=== PATIENT | female | born 1950 | race Caucasian/White ===

== ENCOUNTER → 2017-05-22 | Outpatient (CLI) | payer MEDICARE, OTHER ==
[~2017-05-22] MED LIST: ACET-2031 PO; BACDS PO; CETI-176 PO; CETI10CA8 PO; CIPR-326 PO; DIP25 PO; FAM20 PO; HCTZ; IBU200 PO; IBU600 PO; LOR5/325 PO; LORA-787 PO; MU-V1TAB9 PO; PHENA200 PO; PRA20 PO; PRAV20TA65 PO; RAMI10CA52 PO; RAMI10CA62 PO
--- NOTE | 2017-05-22 10:53 | RADIOLOGY IMAGING REPORT ---
FACILITY: PATIENT NAME: Kisha Stern : 1950 MR: [id number] V: [id number] EXAM DATE: ORDERING PHYSICIAN: KORIN DORAN TECHNOLOGIST: Location: [facility] [place] Patient: Kisha Stern : 1950 Visit/Account:[id number] Date of Sevice: 05/22/2017 DEXA Scan Clinical history: Asymptomatic postmenopausal estrogen deficiency. Comparison: None available. LUMBAR SPINE: The bone mineral density (BMD) measured from L1-L4 correlates with a Z-score 1.5 and a T-score of 0.3 which is Normal as defined by the World Health Organization. The corresponding risk of fracture in the lumbar spine is Not increased compared with a young adult reference population. HIP: Bone mineral density (BMD) measured in the Left total hip region correlates with a Z-score 0.2 and a T-score of by 0.8 which is Normal as defined by the World Health Organization. The corresponding ris k of fracture in the hip is 1-2 times increased compared with a young adult reference population. T score left femoral neck -1.6 Bone mineral density (BMD) measured in the Femoral Neck region measures 0.821 g/cm2. Impression: 1. Lumbar spine: Normal. 2. Left Hip: Normal. 3. Femoral Neck: Bone Mineral Density is 0.821 g/cm2 The next DEXA scan of this patient should include the following sites: L1-L4 and the left hip. FRAX? WHO Fracture Risk Assessment Tool link: <http://www.shef.ac.uk/FRAX/tool.jsp?locationValue=9> PLEASE NOTE: 1) The World Health Organization defines low BMD as follows: T-score Normal > -1 Osteopenia < -1 and > -2.5 Osteoporosis < -2.5 without fractures Established osteoporosis < -2.5 with fractures 2) In general, you may wish to consider: Diagnosis Treatment Follow-up DEXA Normal BMD Prevention 2-3 years Osteopenia Prevention/therapy 1-2 years Osteoporosis Therapy Yearly 3) Fracture risk estimated from the T-score is more accurate for vertebral fractures (often spontane ous) than for hip fractures. Report Dictated By: Karin Duvall MD at 05/22/2017 10:48 AM Report E-Signed By: Karin Duvall MD at 05/22/2017 10:49 AM WSN:[email or web address]
== END ==
LOC: RAD 00:32
PROVIDERS: ATTEND Emergency Medicine
DX: Z13.820 Encounter for screening for osteoporosis (principal); Z78.0 Asymptomatic menopausal state
CPT/HCPCS: 77080

== ENCOUNTER → 2018-01-13 | Outpatient (CLI) | payer MEDICARE, OTHER ==
[~2018-01-13] MED LIST changes: +CHOL10005 PO; +CHOL500045 PO; +PRAV40TA78 PO; -RAMI10CA52 PO; +RAMI10CA9 PO; +ROSU20TA5 PO
--- NOTE | 2018-01-14 10:04 | RADIOLOGY IMAGING REPORT ---
FACILITY: [facility] [place] PATIENT NAME: CECILY SKAGGS : [id number] MR: [id number] V: [id number] EXAM DATE: [id number] ORDERING PHYSICIAN: KORIN DORAN TECHNOLOGIST: Jaida Covington PROCEDURE:BILATERAL DIGITAL SCREENING MAMMOGRAM WITH CAD ASSISTED INTERPRETATION & 3D TOMOSYNTHESIS COMPARISON:Prior mammograms 01/10/17, 12/12/15, 12/07/14, 12/02/13, 10/21/12. INDICATIONS:Screening FINDINGS: Moderately dense fibroglandular tissue is seen throughout the breasts. The parenchymal pattern has remained stable allowing for difference in mammographic technique & patient positioning. There is no evidence of malignant appearing mass, malignant appearing calcifications or other secondary sign of malignancy in either breast. DIAGNOSTIC CATEGORY 1--NEGATIVE. RECOMMENDATIONS: ROUTINE MAMMOGRAM AND CLINICAL EVALUATION. IMPRESSION: BIRADS 1: Negative. No significant abnormality is seen. Dictated by: Karin Duvall M.D. on 01/13/2018 at 15:18 Transcribed by: MARYLU on 01/13/2018 at 15:24 Approved by: Karin Duvall M.D. on 01/14/2018 at 10:03 [facility]
== END ==
LOC: MAMO 00:14
PROVIDERS: ATTEND Emergency Medicine
DX: Z12.31 Encounter for screening mammogram for malignant neoplasm of breast (principal)
CPT/HCPCS: 77063; 77067